=== PATIENT | male | born 1975 | race African-American/Black ===

== ENCOUNTER 2017-11-11 03:05 | Emergency (ER) | payer MEDICAID ==
[~2017-11-11] VITALS: Ht 170.2 cm; Wt 113.1 kg
[~2017-11-11 03:05] MED LIST: BENZ2AMP4; GLIP5TAB10 PO; INSU100I28 SQ; INSU100V5 SQ-INSULIN; METF500T PO; OLAN2.5T10 PO; OLAN2.5T3 PO; OLAN20TA3 PO; RISP1TAB45; SERT25TA; SERT25TA PO; SERT50TA PO; SERT50TA5 PO
[2017-11-11] MEDS ORDERED: CEFTRIAXONE 250 MG ONE (03:46)
[2017-11-11] MEDS ORDERED: AZITHROMYCIN 250 MG TABLET ONE (03:47)
[2017-11-11] MEDS ORDERED: OXYcodone/APAP 5/325MG TABLET ONE (03:47)
[2017-11-11] MEDS ORDERED: KETOROLAC 30 MG/1 ML ONE (03:48)
[2017-11-11] MEDS ORDERED: FLUCONAZOLE 100 MG TABLET PO ONE (04:00)
[2017-11-11] MEDS ORDERED: AZITHROMYCIN 500 MG TABLET PO ONE (04:00)
[2017-11-11] MEDS ORDERED: CEFTRIAXONE 250 MG IM ONE (04:00)
[2017-11-11] MEDS ORDERED: OXYcodone/APAP 5/325MG TABLET PO ONE (04:00)
[2017-11-11] MEDS ORDERED: KETOROLAC 30 MG/1 ML IM ONE (04:00)
[2017-11-11] MEDS ORDERED: LIDOCAINE/PRILOCAINE CRM W/TEG 5GM TP ONE (05:30)
[2017-11-11 05:48] VITALS: BP 142/89
== END 2017-11-11 06:00 | disposition home or self-care (01) ==
LOC: ED 03:43
DX: B37.42 Candidal balanitis (principal); E11.9 Type 2 diabetes mellitus without complications
CPT/HCPCS: 96372; 99284; J0696; J1885; 82962